=== PATIENT | male | born 1955 | race Caucasian/White ===

== ENCOUNTER 2020-09-12 18:07 | Emergency (ER) | payer BC ==
[~2020-09-12 18:07] MED LIST: Iopamidol 370 76% 100 ML VIAL ONE
[2020-09-12 19:28] LABS: #Basophils 0.1 thou/uL (0.0-0.2); #Eosinphils 0.1 thou/uL (0.0-0.7); #Lymphocytes 1.3 thou/uL (1.20-3.40); #Monocytes 0.7 thou/uL (0.11-0.59); #Neutrophils 7.4 thou/uL (1.40-6.50); %Basophils 0.8 % (0.0-1.0); %Lymphocytes 13.3 % (21.0-51.0); %Monocytes 7.8 % (0.0-10.0); %Neutrophils 77.2 % (42.0-75.0); Hemoglobin 12.5 g/dL (14.0-18.0); Mean Corpuscular HGB CONC 32.5 g/dL (32.0-36.0); Mean Corpuscular Hemoglobin 30.8 pg (27.0-31.0); Mean Platelet Volume 7.6 fL (7.4-10.4); Platelet Count 182 thou/uL (130-400); RBC Distribution Width 12.6 % (11.5-14.5); Red Blood Cell (RBC) Count 4.06 mill/uL (4.70-6.10); White Blood Cell (WBC) Count 9.6 thou/uL (4.8-10.8)
[2020-09-12 19:43] LABS: ALT (SGPT) 21 U/L (8-55); AST (SGOT) 22 U/L (5-34); Albumin 3.8 g/dL (3.4-4.8); Alkaline Phosphatase 91 U/L (40-110); Anion Gap 13 mmol/L (10-20); BUN (Urea Nitrogen) 21 mg/dL (8.4-25.7); Bilirubin, Total 0.3 mg/dL (0.2-1.2); Calc. Creatinine Clearance 0 mL/min (70-130); Calcium 8.8 mg/dL (7.8-10.44); Carbon Dioxide 24 mmol/L (23-31); Chloride 108 mmol/L (98-107); Globulin 2.5 g/dL (2.4-3.5); Glucose 95 mg/dL (80-115); Lipase 20 U/L (8-78); Potassium 4.2 mmol/L (3.5-5.1); Protein, Total 6.3 g/dL (5.8-8.1); Sodium 141 mmol/L (136-145)
[2020-09-12] MEDS ORDERED: Ketamine 50 MG/ML (10ML VIAL) ONE (20:08)
--- NOTE | 2020-09-12 21:08 | CT ---
CT OF THE CHEST, ABDOMEN AND PELVIS WITH IV CONTRAST CT OF THE THORACIC AND LUMBAR SPINE WITH IV CONTRAST: 09/12/20 INDICATIONS: 65-year-old male with fall from sitting with right hip and right lateral abdominal pain. COMPARISON: None. FINDINGS: No definite contusion, pleural effusion or pneumothorax is evident. There are areas of subsegmental v olume loss within both lower lobes. There is a sub 4 mm subpleural pulmonary nodule within the anteri or right upper lobe. No focal hepatic lesion is evident. Gallbladder, pancreas, adrenal glands and spleen reveal no acute traumatic injury. There are numerous calcified granulomas in the spleen. 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 There is mild vascular calcification involving the abdominal aorta. No free fluid or enlarged lymph nodes are evident. The bladder is moderately distended. There is scat tered chronic diverticulosis. Small bowel is normal in caliber. The visualized stomach is unremarkable appearing. There is a mildly displaced posterolateral right 10th rib fracture. There is a nondisplaced lateral r ight 9th rib fracture. There is scattered degenerative and osteoarthritic change of the visualized th oracolumbar spine. There is mild thoracic scoliosis. IMPRESSION: 1. Right lateral 9th and right posterolateral 10th rib fractures. 2. No acute traumatic injury involving the chest, abdomen and pelvis. 3. No acute fracture or subluxation of the thoracolumbar spine. 4. 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 Nonemergent follow-up w [facility] vascular surgery may be helpful. 5. Findings of prior granulomatous disease. POS: DONALDO
[2020-09-12] MEDS ORDERED: Ketorolac Tromethamine 30 MG/ML VIAL ONE (21:28)
== END 2020-09-12 22:00 | disposition home or self-care (01) ==
LOC: MADERS 18:07
DX: S22.41XA Multiple fractures of ribs, right side, initial encounter for closed fracture (principal); K21.9 Gastro-esophageal reflux disease without esophagitis; Z79.899 Other long term (current) drug therapy; W17.89XA Other fall from one level to another, initial encounter
CPT/HCPCS: 36415; 71260; 74177; 80053; 83605; 83690; 85025; 96374; 99152; J1885; Q9967